=== PATIENT | female | born 1965 | race Caucasian/White ===

== ENCOUNTER 2018-12-23 01:17 | Emergency (ER) | payer SELFPAY ==
[~2018-12-23] VITALS: Ht 152.4 cm; Wt 44.5 kg
[2018-12-23] MEDS ORDERED: ONDANSETRON IV *ER 4 MG/2 ML VIAL IV ONE ×2 (01:30→02:00)
[2018-12-23] MEDS ORDERED: IV NORMAL SALINE 1000 ML BAG IV ONE (01:30)
[2018-12-23] MEDS ORDERED: ONDANSETRON 4 MG/2 ML VIAL ONE ×2 (01:31→01:49)
--- NOTE | 2018-12-23 01:31 | NUR ---
Pt bib 2 friends for c/o fatigue, nausea after drinking too much alcohol. Pt states she flew here from [facility].. in the morning and has been drinking while at a high school reunion. Pt is awake, alert, oriented x 4, stating she feels very tired and nauseous. No injury or trauma. Pt smells of ETOH. No acute distress noted. No other symptoms.
[2018-12-23 02:10] LABS: CREATININE 0.6 mg/dL (0.6-1.3); POTASSIUM 5.1 mmol/L (3.5-5.1)
[2018-12-23] MEDS ORDERED: NEOMY/BACITRA/POLYMYXIN B OINT UD PACKET TP ONE (02:41)
--- NOTE | 2018-12-23 02:45 | NUR ---
Pt is awake, alert, oriented x 4. Pt states she feels so much better. Ambulates in steady gait. No acute distress noted. Pt states she wants to go home. Pt has her 2 friends with her, who will safely take her home. She states she currently stays with one of her friends.
--- NOTE | 2018-12-23 02:51 | NUR ---
IV removed. Catheter intact and site benign. Pressure and 4x4 gauze applied to site. No bleeding noted.
--- NOTE | 2018-12-23 02:55 | NUR ---
Patient discharged to home in stable conditon. Written and verbal after care instructions given. Patient verbalizes understanding of instructions. Pt ambulated out of ER in stable gait, with her [address] home[address] All belongings w pt. VSS. NAD noted.
[2018-12-23 02:56] VITALS: BP 104/62
== END 2018-12-23 02:57 | disposition home or self-care (01) ==
LOC: ER 01:20
DX: F10.129 Alcohol abuse with intoxication, unspecified (principal); Y90.6 Blood alcohol level of 120-199 mg/100 ml
CPT/HCPCS: 36415; 80048; 96361; 96374; 99283; G0480; J2405 ×2; A4663; J7030